=== PATIENT | female | born 1975 | race Caucasian/White ===

== ENCOUNTER 2019-09-04 12:22 | Inpatient (IN) | payer OTHER, MEDICAID ==
[~2019-09-04] VITALS: Ht 170.2 cm; Wt 74.8 kg
[2019-09-04] MEDS ORDERED: ONDANSETRON HCL 4MG/2ML INJ IV STA (13:34)
[2019-09-04] MEDS ORDERED: MORPHINE SULFATE 4 MG/ML CPJ (NOT FOR IM USE) IV STA (13:34)
[2019-09-04] MEDS ORDERED: SODIUM CHLORIDE 0.9% 1,000 ML IV ONE ×2 (13:34→17:09)
[2019-09-04 14:16] LABS: BASOPHILS % 2.4 % (0.0-2.0); EOSINOPHILS % 0.5 % (0.0-5.0); HEMATOCRIT. 35.9 % (36.0-48.0); LYMPHOCYTES % 7.2 % (20.0-50.0); MEAN CORPUSCULAR HEMOGLOBIN 29.2 pg (28.0-32.0); MEAN CORPUSCULAR VOLUME 87.6 fL (81.0-99.0); MEAN PLATELET VOLUME 7.2 fl (7.4-10.4); MONOCYTES % 6.7 % (2.0-8.0); NEUTROPHILS % 83.2 % (40.0-76.0); PLATELET 605 x1000/uL (130-400); RED CELL DISTRIBUTION WIDTH 13.5 % (11.6-14.6)
[2019-09-04 14:22] LABS: CHLORIDE 103 mEq/L (98-107); PROTHROMBIN TIME 10.4 sec (9.6-11.0)
[2019-09-04 14:38] LABS: HCG SCREEN NEGATIVE
[2019-09-04] MEDS ORDERED: PIPERACILLIN/TAZ 3.375G PREMIX 50 ML IV ONE (17:15)
[2019-09-04] MEDS ORDERED: IOHEXOL-300 100 ML BOTTLE ONE (17:21)
[2019-09-04] MEDS ORDERED: SODIUM CHLORIDE 0.9% 1,000 ML IV SCH (17:49)
[2019-09-04] MEDS ORDERED: ONDANSETRON HCL 4MG/2ML INJ IV PRN (18:00)
[2019-09-04] MEDS ORDERED: HYDROCODONE/ACETAMINOPHEN 5/325MG TABLET PO PRN (18:00)
[2019-09-04] MEDS ORDERED: CLONIDINE 0.1MG TABLET PO PRN (18:00)
[2019-09-04] MEDS ORDERED: IPRATROPIUM/ALBUTEROL 0.5-3(2.5)MG/3ML NEB HHN PRN (18:00)
[2019-09-04] MEDS ORDERED: DOCUSATE SODIUM 100MG CAPSULE PO PRN (18:00)
[2019-09-04] MEDS ORDERED: ACETAMINOPHEN 325MG TABLET PO PRN (18:00)
[2019-09-04] MEDS ORDERED: GUAIFENESIN 200MG/10ML SUGAR FREE UDC PO PRN (18:00)
[2019-09-04] MEDS ORDERED: PIPERACILLIN/TAZOBACTAM 3.375 G in DEXT 5% WATER 100 ML IV SCH (18:00)
[2019-09-04 18:11] LABS: CLARITY URINE CLEAR (CLEAR); COLOR URINE YELLOW (YELLOW); KETONES URINE NEGATIVE (NEGATIVE); LEUKOCYTE ESTERASE URINE NEGATIVE (NEGATIVE); NITRITE URINE NEGATIVE (NEGATIVE); OCCULT BLOOD URINE TRACE (NEGATIVE); PROTEIN URINE NEGATIVE (NEGATIVE); UROBILINOGEN URINE 0.2 E.U./dL (0.2-1.0)
[2019-09-05] VITALS (20 sets, daily range): BP systolic 100–138; BP diastolic 46–74
[2019-09-05] MEDS: LORAZEPAM 0.5MG TABLET PO PRN (00:02)
[2019-09-05] MEDS: MORPHINE SULFATE 2 MG/ML CPJ (NOT FOR IM USE) IV PRN ×2 (00:02→21:16)
[2019-09-05] MEDS: SODIUM CHLORIDE 0.9% 1,000 ML IV SCH ×3 (00:03→18:25)
[2019-09-05] MEDS: PIPERACILLIN/TAZOBACTAM 3.375 G in DEXT 5% WATER 100 ML IV SCH ×3 (03:23→17:50)
[2019-09-05 07:16] LABS: CHLORIDE 107 mEq/L (98-107)
[2019-09-05 07:27] LABS: BASOPHILS % 0.9 % (0.0-2.0); EOSINOPHILS % 0.7 % (0.0-5.0); HEMATOCRIT. 32.8 % (36.0-48.0); HEMOGLOBIN. 10.9 g/dL (12.0-16.0); MEAN CORPUSCULAR HEMOGLOBIN 29.2 pg (28.0-32.0); MEAN CORPUSCULAR VOLUME 87.9 fL (81.0-99.0); MEAN PLATELET VOLUME 7.6 fl (7.4-10.4); MONOCYTES % 8.7 % (2.0-8.0); NEUTROPHILS % 75.7 % (40.0-76.0); PLATELET 624 x1000/uL (130-400); RED BLOOD CELL COUNT 3.73 mill/uL (4.2-5.4); RED CELL DISTRIBUTION WIDTH 13.3 % (11.6-14.6)
[2019-09-05] MEDS ORDERED: LIDOCAINE HCL 1% 20ML VIAL (Pyxis) INJ ONE ×2 (13:50→16:37)
[2019-09-05] MEDS ORDERED: SODIUM BICARBONATE 4% (2.4MEQ) 5ML VIAL IV ONE ×2 (13:50→16:37)
[2019-09-05] MEDS ORDERED: FENTANYL CITRATE/PF 50MCG/ML 2ML VIAL ONE (16:28)
[2019-09-05] MEDS ORDERED: FENTANYL CITRATE/PF 50MCG/ML 2ML VIAL IV ONE (17:15)
[2019-09-06] VITALS: BP 93/56
[2019-09-06] MEDS: PIPERACILLIN/TAZOBACTAM 3.375 G in DEXT 5% WATER 100 ML IV SCH ×4 (02:10→18:49)
[2019-09-06 04:00] VITALS: BP 98/61
[2019-09-06] MEDS: SODIUM CHLORIDE 0.9% 1,000 ML IV SCH ×2 (04:26→14:57)
[2019-09-06 07:36] LABS: BASOPHILS % 0.8 % (0.0-2.0); EOSINOPHILS % 1.5 % (0.0-5.0); HEMATOCRIT. 31.9 % (36.0-48.0); HEMOGLOBIN. 10.8 g/dL (12.0-16.0); LYMPHOCYTES % 22.9 % (20.0-50.0); MEAN CORPUSCULAR HEMOGLOBIN 29.8 pg (28.0-32.0); MEAN CORPUSCULAR VOLUME 88.2 fL (81.0-99.0); MONOCYTES % 10.5 % (2.0-8.0); NEUTROPHILS % 64.3 % (40.0-76.0); PLATELET 650 x1000/uL (130-400); RED BLOOD CELL COUNT 3.61 mill/uL (4.2-5.4); RED CELL DISTRIBUTION WIDTH 13.4 % (11.6-14.6)
[2019-09-06 07:38] LABS: CHLORIDE 108 mEq/L (98-107)
[2019-09-06 08:00] VITALS: BP 98/56
[2019-09-06 12:00] VITALS: BP 100/58
[2019-09-06 16:00] VITALS: BP 101/59
[2019-09-06 20:00] VITALS: BP 103/51
[2019-09-07] VITALS: BP 101/55
[2019-09-07] MEDS: LORAZEPAM 0.5MG TABLET PO PRN (00:19)
[2019-09-07] MEDS: SODIUM CHLORIDE 0.9% 1,000 ML IV SCH ×2 (01:29→11:54)
[2019-09-07] MEDS: PIPERACILLIN/TAZOBACTAM 3.375 G in DEXT 5% WATER 100 ML IV SCH ×2 (01:30→10:32)
[2019-09-07 04:00] VITALS: BP 102/58
[2019-09-07 08:00] VITALS: BP 96/56
[2019-09-07 08:27] LABS: BASOPHILS % 1.2 % (0.0-2.0); HEMATOCRIT. 33.4 % (36.0-48.0); HEMOGLOBIN. 11.3 g/dL (12.0-16.0); LYMPHOCYTES % 15.9 % (20.0-50.0); MEAN CORPUSCULAR HEMOGLOBIN 29.6 pg (28.0-32.0); MEAN CORPUSCULAR VOLUME 87.4 fL (81.0-99.0); NEUTROPHILS % 73.9 % (40.0-76.0); PLATELET 666 x1000/uL (130-400); RED BLOOD CELL COUNT 3.83 mill/uL (4.2-5.4); RED CELL DISTRIBUTION WIDTH 13.6 % (11.6-14.6)
[2019-09-07 10:06] LABS: CHLORIDE 108 mEq/L (98-107)
[2019-09-07] MEDS ORDERED: LEVO750T21 MT (11:58)
[2019-09-07] MEDS ORDERED: HYDR-4001 MT (11:58)
[2019-09-07] MEDS ORDERED: METR500T MT (11:58)
[2019-09-07 12:00] VITALS: BP 96/54
[2019-09-07 13:16] VITALS: BP 96/54
== END 2019-09-07 15:30 | disposition home or self-care (01) | DRG 721 ==
LOC: ER 12:35 → 7WST 17:17 → ENRESERV 20:53
PROVIDERS: ADMIT Internal Medicine; ATTEND Internal Medicine
PROC: 0W9F3ZZ Drainage of Abdominal Wall, Percutaneous Approach (ICD-10-PCS; principal; 2019-09-05)
DX: T81.40XA Infection following a procedure, unspecified, initial encounter (principal); L02.211 Cutaneous abscess of abdominal wall; L76.34 Postprocedural seroma of skin and subcutaneous tissue following other procedure; Y83.8 Other surgical procedures as the cause of abnormal reaction of the patient, or of later complication, without mention of misadventure at the time of the procedure; Y82.8 Other medical devices associated with adverse incidents; D72.824 Basophilia; R55 Syncope and collapse; Z90.49 Acquired absence of other specified parts of digestive tract
CPT/HCPCS: 36415; 49180; 74177; 77012; 80048; 81003; 83605; 84145; 84484; 84703; 87070; 87075; 87077; 87186; 93005; 96361; 96365; 96375; 99291; C1729; C1769; J2270; J2405; J2543; J3010; J3490; J7030; J7040; J7060; Q9967